=== PATIENT | male | born 1975 | race Hispanic/Latino ===

== ENCOUNTER 2017-12-07 20:11 | Emergency (ER) | payer OTHER ==
[~2017-12-07] VITALS: Ht 180.3 cm; Wt 144.3 kg
[~2017-12-07 20:11] MED LIST: ADULT LOW DOSE81 M1 PO; Ecotrin PO; FENTANYL1 EAC5 TD; GLUCOPHAGE1000 MG PO; JANUVIA100 MG PO; KADIAN30 MG PO; LIDODERM 5% P1 PATCH ID; LIDODERM 5% P1 PATCH TD; LISINOPRIL10 MG PO; LOPRESSOR25 MG PO; METFORMIN HCL1000 M1; NOVOLIN N100 UNITS/ SC; NOVOLOG PE100 UNITS/ SC; OPANA ER20 MG; OPANA ER20 MG PO; PRADAXA150 MG PO; RESTORIL15 MG PO; ZANAFLEX4 MG PO; ZOCOR10 MG PO; simvastatin
[2017-12-07] MEDS ORDERED: MOTRIN800 MG PO (22:00)
[2017-12-07] MEDS ORDERED: VALIUM5 MG PO (22:00)
[2017-12-07 22:27] VITALS: BP 165/96
== END 2017-12-07 22:27 | disposition home or self-care (01) ==
LOC: EME 20:11
DX: S16.1XXA Strain of muscle, fascia and tendon at neck level, initial encounter (principal); M25.512 Pain in left shoulder; W11.XXXA Fall on and from ladder, initial encounter
CPT/HCPCS: 72050